=== PATIENT | male | born 1985 | race African-American/Black ===

== ENCOUNTER 2025-05-31 11:16 | Emergency (ER) | payer BC, OTHER ==
[~2025-05-31] VITALS: Ht 175.3 cm; Wt 90.7 kg
[2025-05-31 11:25] VITALS: BP 122/74
[2025-05-31 12:44] LABS: PLATELET COUNT (AUTO) 247 K/uL (152-348); RED BLOOD CELL COUNT(AUTO) 4.90 MIL/uL (4.06-5.63); RED CELL DISTRIBUTION WIDTH 13.1 % (12.1-16.2); WHITE BLOOD COUNT (AUTO) 3.6 K/uL (3.6-10.2)
[2025-05-31 12:45] LABS: *BILIRUBIN,URIN NEGATIVE (NEGATIVE); *CLARITY,URINE CLEAR (CLEAR); *COLOR,URINE YELLOW (YELLOW); *KETONES,URINE NEGATIVE (NEGATIVE); *PROTEIN,URINE NEGATIVE (NEGATIVE); *UROBILINOGEN,URINE 0.2 E.U./dl (NORMAL); LEUKOCYTE ESTERASE ,URINE NEGATIVE (NEGATIVE); NITRITE, URINE NEGATIVE (NEGATIVE); UGLUCOSE NEGATIVE (NEGATIVE)
[2025-05-31] MEDS: IV NORMAL SALINE 1000 ML BAG IV ONE (12:51)
[2025-05-31 12:53] LABS: CREATININE 1.1 mg/dL (0.6-1.3); SODIUM SERUM 145 mmol/L (136-145); UREA NITROGEN, BLOOD 13 mg/dL (7-18)
[2025-05-31 12:57] LABS: ETHANOL 145.0 MG/DL (0-10)
[2025-05-31 12:59] LABS: ASPARTATE AMINOTRANSFERASE 36 U/L (15-37); TOTAL PROTEIN, SERUM 7.6 g/dL (6.4-8.2)
[2025-05-31 13:00] LABS: *AMPHETAMINE, URINE NEGATIVE (NEGATIVE); *BARBITURATE, URINE NEGATIVE (NEGATIVE); *BENZODIAZEPINE, URINE NEGATIVE (NEGATIVE); *CANNABINOID, URINE POSITIVE (NEGATIVE); *COCCAINE, URINE NEGATIVE (NEGATIVE); *OPIATE, URINE NEGATIVE (NEGATIVE); *PHENCYCLIDINE SCREEN,URINE NEGATIVE (NEGATIVE); FENTANYL, URINE NEGATIVE (NEGATIVE)
[2025-05-31 13:01] LABS: *BLOOD, URINE TRACE (NEGATIVE)
[2025-05-31] MEDS ORDERED: SWABABLE VALVE TRANSFER SET EA MC ONE (13:14)
[2025-05-31] MEDS ORDERED: IOHEXOL 300MG/ML 100 ML INFUS..BTL ONE (13:14)
[2025-05-31] MEDS ORDERED: IV NORMAL SALINE 250 ML IV ONE (13:14)
[2025-05-31] MEDS ORDERED: AMOX-319 PO (15:10)
[2025-05-31 15:29] VITALS: BP 122/74; O2SAT 99
== END 2025-05-31 15:30 | disposition home or self-care (01) ==
LOC: ER 11:16
DX: K57.32 Diverticulitis of large intestine without perforation or abscess without bleeding (principal); F12.90 Cannabis use, unspecified, uncomplicated; Z79.899 Other long term (current) drug therapy
CPT/HCPCS: 36415; 71045; 76870; 83690; 84484; 85025; 85730; A4606; A4663; G0480; J7040; Q9967